=== PATIENT | male | born 1970 | race Two or more races ===

== ENCOUNTER 2018-10-08 13:14 | Emergency (ER) | payer SELFPAY ==
[~2018-10-08] VITALS: Ht 172.7 cm; Wt 64.0 kg
[2018-10-08] MEDS ORDERED: LIDOCAINE HCL 1% 20ML VIAL (Pyxis) INJ ONE (13:28)
[2018-10-08] MEDS ORDERED: SODIUM BICARBONATE 4% (2.4MEQ) 5ML VIAL IV ONE (13:28)
[2018-10-08 15:32] VITALS: BP 160/89
== END 2018-10-08 15:34 | disposition home or self-care (01) ==
LOC: ER 14:07
DX: F41.9 Anxiety disorder, unspecified (principal)
CPT/HCPCS: 93005; 99284; J3490

== ENCOUNTER 2025-01-14 15:58 | Emergency (ER) | payer SELFPAY ==
[~2025-01-14] VITALS: Ht 167.6 cm; Wt 64.0 kg
[2025-01-14 15:59] VITALS: O2SAT 99
[2025-01-14] MEDS: SODIUM CHLORIDE 0.9% 1,000 ML IV ONE ×2 (16:32→17:40)
[2025-01-14 16:41] LABS: BASOPHILS % 0.5 % (0.0-2.0); EOSINOPHILS % 3.0 % (0.0-5.0); HEMATOCRIT. 31.7 % (42.0-52.0); HEMOGLOBIN. 10.4 g/dL (14.0-18.0); LYMPHOCYTES % 19.2 % (20.0-50.0); MEAN PLATELET VOLUME 9.1 fl (7.4-10.4); MONOCYTES % 12.0 % (2.0-8.0); NEUTROPHILS % 65.3 % (40.0-76.0); PLATELET 84 x1000/uL (130-400); RED BLOOD CELL COUNT 3.39 mill/uL (4.7-6.1); RED CELL DISTRIBUTION WIDTH 18.9 % (11.6-14.6)
[2025-01-14 17:11] LABS: CREATININE 0.9 mg/dL (0.6-1.3); UREA NITROGEN BLOOD 8 mg/dL (9-23)
[2025-01-14 17:12] LABS: TROPONIN I HIGH SENSITIVITY 13 ng/L (3.0-53)
[2025-01-14 17:13] LABS: ASPARTATE AMINOTRANSFERASE 94 IU/L (<34); BILIRUBIN DIRECT 0.2 mg/dL (<=3.0); BILIRUBIN TOTAL 0.6 mg/dL (0.1-1.0); PROTEIN TOTAL 7.3 g/dL (6.0-8.3)
[2025-01-14] MEDS: LABETALOL 5MG/ML 4ML INJ IV ONE (17:40)
[2025-01-14 19:49] VITALS: BP 178/113; PULSE 92; RESP 11; TEMP 36.6; O2SAT 100
== END 2025-01-14 20:10 | disposition home or self-care (01) ==
LOC: ER 15:58 → CMPBEDREQ 01-15 11:53
DX: E86.0 Dehydration (principal); R55 Syncope and collapse; F10.20 Alcohol dependence, uncomplicated; R06.02 Shortness of breath; Y90.4 Blood alcohol level of 80-99 mg/100 ml
CPT/HCPCS: 80076; 80048; 80320; 82140; 83880; 83605; 83690; 83735; 85025; 84484; 36415; 71045; 93005; 96361; 96374; 99285; J3490; J7030; Z7610; G0480